=== PATIENT | female | born 1980 | race Caucasian/White ===

== ENCOUNTER 2019-10-24 09:53 | Emergency (ER) | payer MEDICAID ==
--- NOTE | 2019-10-24 12:07 | ED Physician Documentation ---
PD HPI FEMALE - Stated complaint Stated Complaint: RECTAL PX - Chief complaint Chief Complaint: General - History obtained from History obtained from: Patient - History of Present Illness Timing - onset: How many days ago (4) Timing - duration: Days (4) Timing - details: Abrupt onset, Still present Associated symptoms: Other (rectal pain and mass) Contributing factors: Other (has hx of hemorrhoids non-painful). No: Similar symptoms before: Has not had sx before Recently seen: Not recently seen - Additional information Additional information: 39-year-old female who has a history of some hemorrhoids that have really not bothered her much has developed a mass that is very tender and continuously painful over the past 4 days. She states that the pain is somewhat better today than it was 2 days ago but it is not resolving and she has this firm mass that will not recede. Review of Systems Constitutional: denies: Fever Eyes: denies: Decreased vision Ears: denies: Ear pain Nose: denies: Congestion Respiratory: denies: Cough GI: denies: Vomiting PD PAST MEDICAL HISTORY - Present Medications Home Medications: Ambulatory Orders Medication Instructions Recorded Confirmed Hydrocodone/Acetaminophen 1 - 2 each PO Q6H PRN #14 tablet 10/24/19 [Hydrocodon-Acetaminophen 5-325] - Allergies Allergies/Adverse Reactions: Allergies Allergy/AdvReac Type Severity Reaction Status Date / Time No Known Drug Allergies Allergy Verified 10/24/19 10:09 PD ED PE NORMAL - Vitals Vital signs reviewed: Yes (Hypertensive mild) - General General: Alert and oriented X 3, No acute distress, Well developed/nourished - HEENT HEENT: Atraumatic, PERRL, EOMI - Respiratory Respiratory: No respiratory distress - Rectal Rectal: Other (With Carmelina as a chocolate finisher operator the rectum is examined there is a thrombosed hemorrhoid at 6:00 it is tender it is small in size 1 cm firm and does not reduce. There is some surrounding erythema.) - Derm Derm: Normal color, Warm and dry, No rash - Extremities Extremities: No deformity, No edema - Neuro Neuro: Alert and oriented X 3, No motor deficit, No sensory deficit, Normal speech Eye Opening: Spontaneous Motor: Obeys Commands Verbal: Oriented GCS Score: 15 - Psych Psych: Normal mood, Normal affect Results - Vitals Vitals: Vital Signs - 24 hr 07/01/20 10:06 Temperature 36.4 C L Heart Rate 73 Respiratory 16 Rate Blood Pressure 135/76 H O2 Saturation 97 Oxygen O2 Source Room air PD MEDICAL DECISION MAKING - ED course Complexity details: considered differential, d/w patient ED course: 39-year-old female with a thrombosed hemorrhoid that is passed the window of opportunity for acute treatment. I have discussed with the patient treatment of the hemorrhoids on an ongoing basis with use of hydrocortisone and reduction. I discussed with the patient coming to the emergency department for a thrombosed hemorrhoid early in the course as we are past the opportunity for treatment helping. Departure - Departure Disposition: 01 Home, Self Care Clinical Impression: Thrombosed hemorrhoids Condition: Stable Instructions: ED Hemorrhoids Follow-Up: [facility] [Provider Group] Prescriptions: Hydrocodone/Acetaminophen [Hydrocodon-Acetaminophen 5-325] 1 - 2 each PO Q6H PRN #14 tablet PRN Reason: pain
[2019-10-24 12:38] VITALS: BP 117/45
== END 2019-10-24 12:39 | disposition home or self-care (01) ==
LOC: ED 09:53
DX: K64.5 Perianal venous thrombosis (principal)
CPT/HCPCS: 99282

== ENCOUNTER 2021-09-09 03:57 | Outpatient (CLI) | payer MEDICAID | END 2021-09-09 03:58 | disposition critical access hospital (66) | LOC: EMS 03:57 | DX: R40.4 Transient alteration of awareness (principal) | CPT/HCPCS: A0425; A0427; A0999 ==

== ENCOUNTER 2021-09-09 04:12 | Emergency (ER) | payer MEDICAID ==
[2021-09-09] MEDS ORDERED: SODIUM CHLORIDE 0.9% 1,000 ML IV STA (04:41)
[2021-09-09 04:57] LABS: BILIRUBIN,URINE NEGATIVE (NEGATIVE); GLUCOSE, URINE (UA) NEGATIVE (NEGATIVE); KETONES,URINE (UA) NEGATIVE (NEGATIVE); LEUKOCYTE ESTERASE, URINE SMALL (NEGATIVE); NITRITE,URINE NEGATIVE (NEGATIVE); OCCULT BLOOD,URINE NEGATIVE (NEGATIVE); PH,URINE 7.5 PH (5.0-7.5); PROTEIN,URINE NEGATIVE (NEGATIVE); UROBILINOGEN,URINE 0.2 (NORMAL) E.U./dL (NORMAL)
--- NOTE | 2021-09-09 05:04 | ED Physician Documentation ---
PD HPI SYNCOPE - Stated complaint Stated Complaint: LOC - Chief complaint Chief Complaint: Neuro - History obtained from History obtained from: Patient, Family - Additional information Additional information: Patient is a 41-year-old female with a previous history of seizure disorder presenting for evaluation after syncopal episode. Patient recalls getting out of bed and feeling a sharp pain to her left abdomen and then feeling nauseous and lightheaded. She then remembers falling back And hitting her head against the wall. Her 18-year-old daughter heard her fall and came to her room. She found her mom Unresponsive and called 911. She did not witness any seizure activity.Per the patient, she used to have seizures and was taking a medication that she cannot recall the name of but says that it usually helps with fibromyalgia for her seizures. She has been off the medication for 7 years and has not had a seizure in that time. She says this did not feel like a seizure episode. She did not have incontinence or bite her tongue which she has had in the past With her seizures. She denies feeling ill earlier today. She currently denies headache, chest pain, difficulty breathing, Vomiting, diarrhea, fever, dysuria or concern for . She does not take any medication. She denies alcohol or drug use. Review of Systems Constitutional: denies: Fever Nose: denies: Congestion Throat: denies: Sore throat Cardiac: denies: Palpitations Respiratory: denies: Dyspnea GI: reports: Abdominal Pain (Resolved) : denies: Dysuria Musculoskeletal: denies: Neck pain Neurologic: reports: Syncope, Head injury PD PAST MEDICAL HISTORY - Past Medical History Past Medical History: Yes Neuro: Seizure disorder - Present Medications Home Medications: Ambulatory Orders Medication Instructions Recorded Confirmed Hydrocodone/Acetaminophen 1 - 2 each PO Q6H PRN #14 tablet 10/24/19 [Hydrocodon-Acetaminophen 5-325] - Allergies Allergies/Adverse Reactions: Allergies Allergy/AdvReac Type Severity Reaction Status Date / Time No Known Drug Allergies Allergy Verified 09/09/21 04:20 - Social History Does the pt smoke?: No Smoking Status: Never smoker Does the pt drink ETOH?: No Does the pt have substance abuse?: No - Immunizations Immunizations are current?: Yes PD ED PE NORMAL - General General: Alert and oriented X 3, No acute distress, Well developed/nourished - HEENT HEENT: Atraumatic, PERRL, EOMI, Moist mucous membranes, Pharynx benign - Neck Neck: Supple, no meningeal sign, No bony TTP, C-Spine cleared by NEXUS criteria - Cardiac Cardiac: RRR, No murmur, Strong equal pulses - Respiratory Respiratory: No respiratory distress, Clear bilaterally - Abdomen Abdomen: Normal bowel sounds, Soft, Non tender - Back Back: No spinal TTP - Derm Derm: Warm and dry - Extremities Extremities: No edema - Neuro Neuro: Alert and oriented X 3, chapter relations administrator 2-12 intact, No motor deficit, No sensory deficit, Normal speech Eye Opening: Spontaneous Motor: Obeys Commands Verbal: Oriented GCS Score: 15 - Psych Psych: Normal mood Results - Vitals Vitals: Oxygen O2 Source Room air - EKG (time done) 0435 Rate: Rate (enter#) (62) Rhythm: NSR Intervals: Other (QTC 415) Ischemia: No: ST elevation c/w ischemia, ST depression - Labs Labs: Laboratory Tests 09/09/21 09/09/21 09/09/21 04:50 05:20 05:20 WBC 8.0 RBC 4.13 L Hgb 11.5 L Hct 35.9 L MCV 86.9 MCH 27.8 MCHC 32.0 RDW 13.4 Plt Count 207 MPV 11.8 H Neut # (Auto) 4.9 Lymph # (Auto) 2.4 Mathews # (Auto) 0.5 Eos # (Auto) 0.1 Baso # (Auto) 0.1 Absolute Nucleated RBC 0.00 Nucleated RBC % 0.0 Sodium 136 Potassium 3.6 Chloride 106 Carbon Dioxide 22 Anion Gap 8.0 BUN 12 Creatinine 0.6 Estimated GFR (MDRD) 110 Glucose 85 Calcium 8.6 Total Bilirubin 0.3 AST 18 ALT 12 Alkaline Phosphatase 60 Total Protein 6.2 L Albumin 3.7 Globulin 2.5 Albumin/Globulin Ratio 1.5 Lipase 35 Urine Color YELLOW Urine Clarity CLEAR Urine pH 7.5 Ur Specific [place] 1.015 Urine Protein NEGATIVE Urine Glucose (UA) NEGATIVE Urine Ketones NEGATIVE Urine Occult Blood NEGATIVE Urine Nitrite NEGATIVE Urine Bilirubin NEGATIVE Urine Urobilinogen 0.2 (NORMAL) Ur Leukocyte Esterase SMALL H Urine RBC 0-5 Urine WBC 0-3 Ur Squamous Epith Cells FEW Squamous Amorphous Sediment Moderate Urine Bacteria Rare Ur Microscopic Review INDICATED Urine Culture Comments INDICATED Urine HCG, Qual NEGATIVE PD MEDICAL DECISION MAKING - ED course Complexity details: reviewed results, re-evaluated patient, d/w patient, d/w family ED course: Pt is a 41 yo F with episode suggestive of syncope. No seizure activity observed. CT head obtained due to head injury with LOC. Labs unremarkable, no arrythmias seen. Pt had sharp abdominal pain just prior to episode. She is not and abdominal exam remains benign. She is ambulatory without issue. VSS. Low risk for syncope for SF syncope criteria. Pt to followup with PCP. Adult daughter at bedside, both aware of return precautions. Departure - Departure Disposition: 01 Home, Self Care Clinical Impression: Syncope Qualifiers: Syncope type: unspecified Qualified Code(s): R55 - Syncope and collapse Condition: Stable Instructions: ED Fainting Unkn Cause Comments: Irma - You were evaluated after a fainting episode. The exact cause of why you passed out is not clear. It could have been related to the pain you would experiencing at that time. You had a CT scan of your brain which is normal. There are no signs of an irregular heart rhythm. And your labs are also reassuring. You are also feeling better and we feel it is okay for you to go home this morning. Please follow-up with your primary care doctor. Please make sure to take plenty of rest and keep yourself hydrated today. If it anytime you feel dizzy or lightheaded please try and sit or lay down To prevent any injuries from falling. Please return to the emergency department with any worrisome symptoms such as headache, chest pain, abdominal pain, vomiting. Discharge Date/Time: 09/09/21 07:05
[2021-09-09 05:06] LABS: CLARITY,URINE CLEAR (CLEAR)
[2021-09-09 05:07] LABS: AMORPHOUS SEDIMENT,UR Moderate /LPF; BACTERIA,URINE Rare /HPF (None Seen); HCG UR QUAL NEGATIVE; RBC,URINE 0-5 /HPF (0-5); SQUAMOUS EPITHELIAL CELL,UR FEW Squamous (<= Few); WBC,URINE 0-3 /HPF (0-5)
[2021-09-09 05:24] LABS: BASOPHILS # (AUTO) 0.1 10^3/uL (0.0-0.1); BASOPHILS % (AUTO) 0.6 %; EOSINOPHILS # (AUTO) 0.1 10^3/uL (0.0-0.7); EOSINOPHILS % (AUTO) 1.3 %; HCT - HEMATOCRIT 35.9 % (37.0-47.0); HGB - HEMOGLOBIN 11.5 g/dL (12.0-16.0); LYMPHOCYTES # (AUTO) 2.4 10^3/uL (1.5-3.5); LYMPHOCYTES % (AUTO) 29.7 %; MEAN CORPUSCULAR HEMOGLOBIN 27.8 pg (27.0-31.0); MEAN CORPUSCULAR VOLUME 86.9 fL (81.0-99.0); MEAN PLATELET VOLUME 11.8 fL (7.9-10.8); MONOCYTES # (AUTO) 0.5 10^3/uL (0.0-1.0); MONOCYTES % (AUTO) 6.8 %; NEUTROPHILS # (AUTO) 4.9 10^3/uL (1.5-6.6); NEUTROPHILS % (AUTO) 61.3 %; PLT - PLATELET COUNT 207 10^3/uL (130-450); RED BLOOD COUNT 4.13 10^6/uL (4.20-5.40); RED CELL DISTRIBUTION WIDTH 13.4 % (12.0-15.0)
[2021-09-09 05:37] LABS: ALBUMIN 3.7 g/dL (3.2-5.5); ALBUMIN/GLOBULIN RATIO 1.5 (1.0-2.2); BILIRUBIN,TOTAL 0.3 mg/dL (0.2-1.0); CALCIUM 8.6 mg/dL (8.5-10.3); CREATININE 0.6 mg/dL (0.4-1.0); POTASSIUM 3.6 mmol/L (3.5-5.0); TOTAL PROTEIN 6.2 g/dL (6.7-8.2)
[2021-09-09 06:57] VITALS: BP 110/72
--- NOTE | 2021-09-09 08:03 | CT Report ---
PROCEDURE: HEAD WO INDICATIONS: head injury [facility] LOC TECHNIQUE: Noncontrast 4.5 mm thick angled axial sections acquired from the foramen magnum to the vertex. For r adiation dose reduction, the following was used: automated exposure control, adjustment of mA and/or kV according to patient size. COMPARISON: None. FINDINGS: Image quality: Excellent. CSF spaces: Basal cisterns are patent. No extra-axial fluid collections. Ventricles are normal in size and shape. Brain: No midline shift. No intracranial masses or hemorrhage. Plummer-white matter interface is norm al. Skull and face: Calvarium and visualized facial bones are intact, without suspicious lesions. Sinuses: Visualized sinuses and mastoids are clear. IMPRESSION: 1. No acute intracranial process. The above findings are concordant with preliminary report. Reviewed by: Megan uBtler MD on 09/09/2021 8:01 AM PDT Approved by: Megan Butler MD on 09/09/2021 8:01 AM PDT Station ID: [id number]
== END 2021-09-09 07:05 | disposition home or self-care (01) ==
LOC: EDUNIT# → ED 04:12
DX: R55 Syncope and collapse (principal)
CPT/HCPCS: 36415; 80053; 81001; 81003; 81025; 83690; 85025; 87086; 93005; 99284